=== PATIENT | female | born 1970 | race Caucasian/White ===

== ENCOUNTER 2020-02-21 08:40 | Emergency (ER) | payer MEDICAID ==
[~2020-02-21] VITALS: Ht 170.2 cm; Wt 90.0 kg
[2020-02-21] MEDS ORDERED: LORazepam 1 MG tablet PO ONE ×2 (09:40→13:55)
[2020-02-21] MEDS ORDERED: FLUO-167 PO (09:54)
[2020-02-21] MEDS ORDERED: TIZA4TAB11 PO (09:57)
[2020-02-21] MEDS ORDERED: GABA-530 PO (09:57)
[2020-02-21] MEDS ORDERED: LOXA25CA PO (09:57)
[2020-02-21] MEDS ORDERED: BUPR150T6 PO (10:01)
[2020-02-21] MEDS ORDERED: TRAZ150T78 PO (10:01)
[2020-02-21] MEDS ORDERED: OLAN10TA19 PO (10:01)
[2020-02-21] MEDS ORDERED: LAMO25TA72 PO (10:01)
[2020-02-21] MEDS ORDERED: CLON2TAB12 PO (10:01)
--- NOTE | 2020-02-21 10:14 | NUR ---
pt brought in bag of empty medication bottles. only 4 bottles had medication in them. those medications were taken to pharmacy. med rec updated based on medications gotten in february.
[2020-02-21 11:01] LABS: BASOPHILS % (AUTO) 0.4 % (0-1); EOSINOPHILS # (AUTO) 0.1 X10'3 (0-0.9); EOSINOPHILS % (AUTO) 1.3 % (0-6); HEMATOCRIT 41.4 % (35.0-45.0); HEMOGLOBIN 13.8 g/dl (12.0-16.0); LYMPHOCYTES # (AUTO) 1.9 X10'3 (1.1-4.8); LYMPHOCYTES % (AUTO) 23.1 % (21-51); MEAN CORPUSCULAR HEMOGLOBIN 31.5 PG (27.0-31.0); MEAN CORPUSCULAR HGB CONC 33.4 g/dL (33.0-36.5); MEAN CORPUSCULAR VOLUME 94.3 FL (78-98); MEAN PLATELET VOLUME 7.5 FL (7.4-10.4); MONOCYTES # (AUTO) 0.4 X10'3 (0-0.9); MONOCYTES % (AUTO) 5.5 % (2-12); NEUTROPHILS # (AUTO) 5.6 X10'3 (1.8-7.7); NEUTROPHILS % (AUTO) 69.7 % (42-75); PLATELET COUNT 293 X10'3 (140-440); RED BLOOD COUNT 4.39 X10'6 (4.20-5.60); RED CELL DISTRIBUTION WIDTH 13.7 % (11.5-14.5)
[2020-02-21 11:06] LABS: URINE HCG NEGATIVE (NEG)
[2020-02-21 11:12] LABS: ALANINE AMINOTRANSFERASE 36 U/L (12-78); ALBUMIN 3.7 G/DL (3.4-5.0); ALBUMIN/GLOBULIN RATIO 0.9 (1.1-1.5); ALKALINE PHOSPHATASE 103 IU/L (46-116); ANION GAP 10 (8-16); ASPARTATE AMINO TRANSFERASE 30 U/L (10-37); BILIRUBIN,TOTAL 0.8 MG/DL (0.1-1.0); BLOOD UREA NITROGEN 5 MG/DL (7-18); BUN/CREATININE RATIO 5.4 (6.6-38.0); CALCIUM 8.6 MG/DL (8.5-10.1); CHLORIDE 104 MMOL/L (99-107); CREATININE 0.93 MG/DL (0.40-0.90); ETHANOL < 0.010 GM/DL (0.0-0.010); GLUCOSE 117 MG/DL (70-104); POTASSIUM 3.4 MMOL/L (3.5-5.1); SODIUM 139 MMOL/L (135-145); TOTAL CARBON DIOXIDE 25.4 MMOL/L (24-32); eGFR 64 ML/MIN
[2020-02-21 11:14] LABS: URINE AMPHETAMINE SCREEN NEGATIVE (Neg); URINE BARBITUATE SCREEN NEGATIVE (Neg); URINE BENZODIAZEPINES SCREEN NEGATIVE (Neg); URINE CANNABINOID SCREEN NEGATIVE (Neg); URINE COCAINE SCREEN NEGATIVE (Neg); URINE METHADONE SCREEN NEGATIVE (Neg); URINE OPIATE SCREEN NEGATIVE (Neg); URINE PHENCYCLIDINE SCREEN NEGATIVE (Neg)
[2020-02-21 11:15] LABS: CLARITY,URINE CLOUDY (Clear); COLOR,URINE YELLOW (Yellow); GLUCOSE, URINE NEGATIVE (Neg); KETONES,URINE NEGATIVE (Neg); LEUKOCYTE ESTERASE ,URINE NEGATIVE (Neg); NITRITES, URINE NEGATIVE (Neg); OCCULT BLOOD,URINE LARGE (Neg); PROTEIN,URINE NEGATIVE (Neg); UROBILINOGEN,URINE 0.2 E.U/dL (0.2-1.0)
--- NOTE | 2020-02-21 11:16 | NUR ---
pt sister Ashlyn [phone] lives in [place]. stated will answer questions. She stated pt used to live with mother until she . was moved to an assisted living home where they would dispense medications.
[2020-02-21 11:20] LABS: UA COLLECTION TYPE VOIDED
[2020-02-21 11:24] LABS: MUCUS STRANDS MODERATE /LPF (Neg); SQUAMOUS EPITHELIAL CELL,UR MANY /LPF (FEW)
[2020-02-21 11:25] LABS: BACTERIA,URINE 1+ /HPF (Neg); RBC,URINE 0-2 /HPF (0-2); WBC,URINE 0-4 /HPF (0-4)
--- NOTE | 2020-02-21 11:25 | NUR ---
pt refused to give information about shelter because she didnt like they way she was treated there. stating "everyones verry catty over there and talk behind peoples back"
--- NOTE | 2020-02-21 12:48 | NUR ---
relieving RN for break, pt is resting quietly on gurney,
--- NOTE | 2020-02-21 13:48 | NUR ---
pt c/o groin pain and stated she would like additional anxiety medication. José Luis Tariq notified and ordered ativan 1mg po and ibuprofen 400mg once.
[2020-02-21] MEDS ORDERED: ibuprofen tablet 400 MG TABLET PO ONE (13:55)
--- NOTE | 2020-02-21 16:24 | NUR ---
PACKET FAXED TO [facility]
--- NOTE | 2020-02-21 16:56 | NUR ---
PT WALKED UP TO NURSING STATION AND ASKING TO BE CHARTED THAT SHE IS CYCLING.
--- NOTE | 2020-02-21 17:14 | NUR ---
med rec completed to best of patients knowledge and bottles brought in. faxed to pharmacy.
[2020-02-21] MEDS: LOXAPINE SUCCINATE 25 MG CAPSULE PO SCH (18:51)
--- NOTE | 2020-02-21 19:03 | NUR ---
Pt given extra snacks that are veg. compiant.
[2020-02-21] MEDS: lamoTRIgine 25mg tablet PO SCH (20:05)
[2020-02-21] MEDS ORDERED: clonazePAM 1mg tablet PO PRN (21:00)
[2020-02-21] MEDS ORDERED: traZODone 150mg tablet PO SCH (21:00)
[2020-02-21] MEDS ORDERED: olanzapine 10mg tablet PO SCH (21:00)
[2020-02-22 06:01] VITALS: BP 82/54
--- NOTE | 2020-02-22 06:30 | NUR ---
pt is sleeping in her room. no issues at this time
--- NOTE | 2020-02-22 07:30 | NUR ---
pt is sleeping in her room. no issues at this time
[2020-02-22] MEDS: LOXAPINE SUCCINATE 25 MG CAPSULE PO SCH ×2 (07:53→08:00)
[2020-02-22] MEDS: lamoTRIgine 25mg tablet PO SCH (07:54)
[2020-02-22] MEDS: tizanidine 4mg tablet PO SCH ×3 (07:54→16:35)
[2020-02-22] MEDS: gabapentin 100mg capsule PO SCH ×4 (07:54→16:00)
[2020-02-22] MEDS ORDERED: buPROPion SR 150mg tablet PO SCH (08:00)
[2020-02-22] MEDS ORDERED: FLUoxetine 20mg capsule PO SCH (08:00)
--- NOTE | 2020-02-22 08:30 | NUR ---
pt is sleeping in her room. no issues at this time
--- NOTE | 2020-02-22 09:30 | NUR ---
pt is sleeping in her room. no issues at this time
--- NOTE | 2020-02-22 10:41 | NUR ---
Assumed care while RN is on second break
--- NOTE | 2020-02-22 11:33 | NUR ---
nurse to nurse given
--- NOTE | 2020-02-22 12:00 | NUR ---
pt is talking on the phone with a friend
--- NOTE | 2020-02-22 13:00 | NUR ---
rashida called for a nurse to nurse
--- NOTE | 2020-02-22 14:00 | NUR ---
pt is on the phone talking
--- NOTE | 2020-02-22 15:00 | NUR ---
[facility] ACCEPTED THE PT [address]. TRANSPORT IS COMING AT 1730
--- NOTE | 2020-02-22 16:00 | NUR ---
PT IS RESTING IN HER BED
--- NOTE | 2020-02-22 17:00 | NUR ---
PT IS LEAVING FOR REST PAD IN 30 MINS
== END 2020-02-22 18:03 ==
LOC: ER 08:42
DX: F29 Unspecified psychosis not due to a substance or known physiological condition (principal); F31.9 Bipolar disorder, unspecified; F17.200 Nicotine dependence, unspecified, uncomplicated; Z88.8 Allergy status to other drugs, medicaments and biological substances; Z79.899 Other long term (current) drug therapy
CPT/HCPCS: 36415; 80053; 80305; 80320; 81001; 81025; 84443; 85025; 99285

== ENCOUNTER 2020-04-09 10:27 | Emergency (ER) | payer MEDICAID ==
[~2020-04-09] VITALS: Ht 170.2 cm; Wt 90.0 kg
[~2020-04-09 10:27] MED LIST: BUPR150T6 PO; CLON2TAB12 PO; FLUO-167 PO; GABA-530 PO; LAMO25TA72 PO; LOXA25CA PO; OLAN10TA19 PO; TIZA4TAB11 PO; TRAZ150T78 PO
[2020-04-09 10:31] VITALS: BP 118/62
[2020-04-09] MEDS ORDERED: diazepam 5mg tablet PO ONE (13:10)
--- NOTE | 2020-04-09 14:03 | NUR ---
Call to PtGabbi Lainez who is staying at his house (#[phone]) where she found him down ini the AM and stayed he has been retaining "a lot of water" since D/C from [facility].
== END 2020-04-09 14:41 | disposition home or self-care (01) ==
LOC: ER 10:28
DX: F20.9 Schizophrenia, unspecified (principal); M54.2 Cervicalgia; F31.9 Bipolar disorder, unspecified; Z88.8 Allergy status to other drugs, medicaments and biological substances; Z79.899 Other long term (current) drug therapy
CPT/HCPCS: 99283

== ENCOUNTER 2020-04-22 06:20 | Emergency (ER) | payer MEDICAID ==
[~2020-04-22] VITALS: Ht 170.2 cm; Wt 90.9 kg
[~2020-04-22 06:20] MED LIST changes: -TIZA4TAB11 PO
[2020-04-22 06:31] VITALS: BP 116/74
[2020-04-22] MEDS ORDERED: OLANZapine 2.5MG tablet PO SCH (07:15)
[2020-04-22] MEDS ORDERED: olanzapine 10mg tablet PO ONE (07:15)
[2020-04-22] MEDS ORDERED: olanzapine 10mg tablet ONE (07:19)
== END 2020-04-22 07:39 | disposition home or self-care (01) ==
LOC: ER 06:20
DX: R44.1 Visual hallucinations (principal); H57.89 Other specified disorders of eye and adnexa; F31.9 Bipolar disorder, unspecified; Z76.0 Encounter for issue of repeat prescription; Z88.8 Allergy status to other drugs, medicaments and biological substances; Z79.899 Other long term (current) drug therapy
CPT/HCPCS: 99283

== ENCOUNTER 2020-05-08 07:19 | Emergency (ER) | payer MEDICAID ==
[~2020-05-08] VITALS: Ht 172.7 cm; Wt 90.9 kg
[2020-05-08 07:22] VITALS: BP 111/63
--- NOTE | 2020-05-08 07:55 | NUR ---
PT REFUSING ALL TREATMENT AND LEAVES. PT GIVEN A LIST OF MENTAL HEALTH FACILITIES SHE CAN CONTACT FOR MEDICATION CHANGES.
== END 2020-05-08 07:58 | disposition home or self-care (01) ==
LOC: ER 07:20
DX: J06.9 Acute upper respiratory infection, unspecified (principal); R09.89 Other specified symptoms and signs involving the circulatory and respiratory systems; F31.9 Bipolar disorder, unspecified; F20.9 Schizophrenia, unspecified; Z88.8 Allergy status to other drugs, medicaments and biological substances; Z79.899 Other long term (current) drug therapy
CPT/HCPCS: 36415; 99281; 99282